=== PATIENT | male | born 1980 | race Caucasian/White ===

== ENCOUNTER 2019-05-21 04:30 | Emergency (ER) | payer OTHER ==
[~2019-05-21] VITALS: Ht 180.3 cm; Wt 102.1 kg
[2019-05-21 04:39] VITALS: BP_SYST 154
--- NOTE | 2019-05-21 04:39 | NUR ---
Patient to ER bed 7 to gown for evaluation. Side rails up. Report given to CINDY Garcia.
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
--- NOTE | 2019-05-21 04:40 | NUR ---
Sussy Blackmon at bedside examining patient.
[2019-05-21] MEDS ORDERED: ONDANSETRON HCL 4 MG/2 ML VIAL IVP ONE (04:45)
[2019-05-21] MEDS ORDERED: methylPREDNISolone SOD SUCC/PF 62.5 MG/ML VIAL IVP ONE (04:45)
[2019-05-21] MEDS ORDERED: MORPHINE 4 MG/ML INJ. SYRINGE IVP ONE ×2 (04:45→06:00)
--- NOTE | 2019-05-21 05:10 | NUR ---
# 20 gauge angiocath placed to LAC. Use of asceptic technique. Opsite placed over site. Blood return noted. Blood for lab drawn from site. Flushed with 10 cc of normal saline. No evidence of infiltration noted. Patient tolerated well.
--- NOTE | 2019-05-21 05:25 | NUR ---
patient went to radiology in stable condition.
[2019-05-21 05:41] LABS: BILIRUBIN,URINE NEGATIVE (NEGATIVE); BLOOD, URINE 2+ (NEGATIVE); CLARITY/URINE CLEAR (CLEAR); COLOR,URINE YELLOW (YELLOW); GLUCOSE,URINE NEGATIVE (NEGATIVE); KETONES,URINE NEGATIVE (NEGATIVE); LEUKOCYTE ESTERASE ,URINE NEGATIVE (NEGATIVE); NITRITE, URINE NEGATIVE (NEGATIVE); PH,URINE 5.5 (5.0-8.0); PROTEIN URINE NEGATIVE (NEGATIVE); UROBILINOGEN,URINE 0.2 (0.2-1.0)
--- NOTE | 2019-05-21 05:43 | NUR ---
Patient back from CT.
[2019-05-21 05:47] LABS: BACTERIA,URINE RARE /HPF (None Seen); WBC,URINE 0-3 /HPF (0-3)
[2019-05-21] MEDS ORDERED: CYCLOBENZAPRINE HCL 10 MG TABLET (FLEXERIL) PO ONE (06:00)
--- NOTE | 2019-05-21 06:53 | NUR ---
Patient given written and verbal discharge instructions and verbalizes understanding. ER MD Blackmon discussed with patient the results and treatment provided. Patient in stable condition. ID arm band removed. IV catheter removed intact and dressing applied, no active bleeding. Rx of Flexeril, Zofran, [place], and Medrol Dosepak given. Patient educated on pain management and to follow up with PMD. Pain Scale 3/10. Opportunity for questions provided and answered. Medication side effect fact sheet provided.
[2019-05-21 06:55] VITALS: BP_SYST 145
== END 2019-05-21 06:55 | disposition home or self-care (01) ==
LOC: SED 04:30
DX: S33.5XXA Sprain of ligaments of lumbar spine, initial encounter (principal); S23.3XXA Sprain of ligaments of thoracic spine, initial encounter; S39.012A Strain of muscle, fascia and tendon of lower back, initial encounter; S29.012A Strain of muscle and tendon of back wall of thorax, initial encounter; M54.15 Radiculopathy, thoracolumbar region; W22.8XXA Striking against or struck by other objects, initial encounter; Y93.89 Activity, other specified; Y92.89 Other specified places as the place of occurrence of the external cause; Y99.8 Other external cause status
CPT/HCPCS: 72128; 72131; 81000; 96374; 96375; 96376; 99284; J2270; J2405; J2930

== ENCOUNTER 2024-01-18 10:20 | Emergency (ER) | payer OTHER ==
[~2024-01-18] VITALS: Ht 180.3 cm; Wt 102.1 kg
[2024-01-18 10:26] VITALS: BP_SYST 148; PULSE 80; RESP 18; TEMP 98.3; O2SAT 96
[2024-01-18] MEDS ORDERED: HYDR-3917 PO (11:25)
[2024-01-18] MEDS ORDERED: NAPR-688 PO (11:25)
[2024-01-18 11:45] VITALS: BP_SYST 148; PULSE 80; RESP 18; TEMP 98.3; O2SAT 96
[2024-01-18] MEDS: KETOROLAC TROMETHAMINE 60 MG/2 ML VIAL IM ONE (11:45)
== END 2024-01-18 11:49 | disposition home or self-care (01) ==
LOC: SED 10:20
DX: M54.50 Low back pain, unspecified (principal); Z79.899 Other long term (current) drug therapy
CPT/HCPCS: 72100; 99283